=== PATIENT | female | born 1945 | race Caucasian/White ===

== ENCOUNTER → 2016-10-17 | Outpatient (CLI) | payer MEDICARE, BC ==
--- NOTE | 2016-10-17 19:51 | XCELERA REPORT ---
[address] [address] Transthoracic Echocardiogram Report Name: MELISSA WOLFF Age: 71 yrs Gender: Female : 1945 Patient Status: Outpatient Patient Location: Study Date: 10/17/2016 11:14 AM Height: 62 in Weight: 138 lb BSA: 1.6 m2 Reason For Study: CHF I50.32 Ordering Physician: PAMELA OLIVA Performed By: Jhonny Torres Interpretation Summary small post pericardial effusion Mild AV sclerosis with no , no AR. Mild MAC, no MS, mild MR with no LA enlargement Mild conc LVH with normal LVEF 60%, mild hypokin apical IVS hypokinesis, no LV diastolic dysfunction Mild TR with mild pulm hypertension, RVSP34 , MMode/2D Measurements \T\ Calculations RVDd: 2.6 cm LVIDd: 4.1 cm FS: 33.5 % Ao root diam: 3.1 cm IVSd: 1.1 cm LVIDs: 2.7 cm EDV(Teich): 75.1 ml LVPWd: 1.1 cm ESV(Teich): 28.0 ml Ao root area: 7.6 cm2 EF(Teich): 62.8 % LA dimension: 3.6 cm Doppler Measurements \T\ Calculations MV E max derek: MV P1/2t max derek: Ao V2 max: LV V1 max P.1 cm/sec 82.3 cm/sec 101.4 cm/sec 1.8 mmHg MV A max derek: MV P1/2t: 42.7 msec Ao max PG: LV V1 max: 58.5 cm/sec 4.1 mmHg 68.0 cm/sec MV E/A: 1.4 MVA(P1/2t): 5.1 cm2 MV dec slope: 563.9 cm/sec2 PA V2 max: PI end-d derek: TR max derek: RAP systole: 72.6 cm/sec 127.6 cm/sec 270.7 cm/sec 10.0 mmHg PA max PG: TR max P.1 mmHg 29.4 mmHg RVSP(TR): 39.4 mmHg Left Ventricle The left ventricle is normal in size. There is mild concentric left ventricular hypertrophy. The left ventricular ejection fraction is normal. LV EF is 60%. Doppler measurements suggest normal left ventricular diastolic function. There is distal septal wall mild hypokinesis. There are regional wall motion abnormalities as specified. There is no thrombus. Right Ventricle The right ventricle is normal in size, thickness and function. Atria The right atrium is normal. The left atrial size is normal. The interatrial septum is intact with no evidence for an atrial septal defect. Mitral Valve There is mild mitral annular calcification. There is no evidence of mitral valve prolapse. There is no mitral valve stenosis. There is a trace to mild amount of mitral regurgitation. Aortic Valve The aortic valve is sclerotic and shows some degree of functional abnormality. The aortic valve is trileaflet. There is no aortic valvular vegetation. There is no aortic valve stenosis. No aortic regurgitation is present. Tricuspid Valve The tricuspid valve is not well visualized secondary to technical limitations. There is a mild amount of tricuspid regurgitation. Right ventricular systolic pressure is estimated to be elevated at 30-40mmHg. 34mm Hg RAP 5. Pulmonic Valve The pulmonic valve is not well visualized. There is a trace or physiologic amount of pulmonic regurgitation. Great Vessels The aortic root is normal size. Effusions Small pericardial effusion. I WMSI = 1.07 % Normal = 93 Segments Size X - Cannot 1 - Normal 2 - 3 - Akinetic4 - 1-2 small Interpret Hypokinetic Dyskinetic 3-5 moderate 5 - 6-14 large Aneurysmal 15-16 diffuse : PAMELA OLIVA > Eloy Bullock
== END ==
LOC: SP 10:48
PROVIDERS: ATTEND Family Medicine
DX: I50.32 Chronic diastolic (congestive) heart failure (principal)
CPT/HCPCS: 93306

== ENCOUNTER 2017-11-12 19:05 | Emergency (ER) | payer MEDICARE, BC ==
[2017-11-12] MEDS ORDERED: HYDROCODONE/ACETAMINOPHEN 5-325 MG TABLET PO ONE (21:51)
[2017-11-12] MEDS ORDERED: LIDOCAINE 1% INJ-PF (10 MG/ML) 30 ML SDV INJ ONE (21:52)
[2017-11-12] MEDS ORDERED: TETANUS/DIPHTHERIA TOX-ADULT 0.5 ML SYR (>=7YO) IM ONE (21:52)
[2017-11-12] MEDS ORDERED: LIDOCAINE 1.5%/EPINEPHRINE INJ-PF 30 ML SDV INJ ONE (21:56)
[2017-11-12] MEDS ORDERED: LIDOCAINE 1%/EPINEPHRINE INJ 20 ML VIAL ONE ×2 (22:00→22:03)
--- NOTE | 2017-11-12 22:40 | ER Document Report ---
ED General - General Chief Complaint: Laceration Stated Complaint: LEFT HAND PAIN Time Seen by Provider: 11/12/17 21:50 Mode of Arrival: Ambulatory Information source: Patient TRAVEL OUTSIDE OF THE [place] IN LAST 30 DAYS: No - HPI Notes: Patient is a pleasant 72-year-old female presents to the emergency department with report that she was cleaning a glass bowl and ended up sustaining a laceration when the bowl broke, cutting her left hand. She reports moderate amount of bleeding. She is on Plavix. She denies any numbness, paresthesia, or loss of mobility. No other musculoskeletal complaint or injury. - Related Data Allergies/Adverse Reactions: No Known Drug Allergies Allergy (Unknown, Verified 11/12/17 19:08) Past Medical History - General Information source: Patient - Social History Smoking Status: Never Smoker Chew tobacco use (# tins/day): No Frequency of alcohol use: None Drug Abuse: None Lives with: Alone Family History: Reviewed & Not Pertinent Patient has suicidal ideation: No Patient has homicidal ideation: No - Past Medical History Cardiac Medical History: Reports: Hx Hypercholesterolemia Denies: Hx Coronary Artery Disease, Hx Heart Attack, Hx Hypertension Pulmonary Medical History: Denies: Hx Asthma, Hx Bronchitis, Hx COPD, Hx Pneumonia Neurological Medical History: Reports: Hx Cerebrovascular Accident - X 11 YEARS AGO BLIND LEFT EYE Renal/ Medical History: Denies: Hx Peritoneal Dialysis Musculoskeletal Medical History: Reports Hx Arthritis - OSTEOPOROSIS - Immunizations Hx Diphtheria, Pertussis, Tetanus Vaccination: No Hx Pneumococcal Vaccination: 03/05/15 Review of Systems - Review of Systems -: Yes All other systems reviewed and negative Physical Exam - Vital signs Vitals: Temp Pulse Resp BP Pulse Ox 97.5 F 91 18 151/86 H 92 11/12/17 19:47 11/12/17 19:47 11/12/17 19:47 11/12/17 19:47 11/12/17 19:47 - Notes Notes: Physical exam shows a interactive alert 72-year-old female no obvious distress HEENT conjunctiva clear Neck good mobility Examination left upper extremity shows a isolated 1.5 cm laceration along the thenar eminence palmar aspect. Distally the patient has good sensation and capillary refill and has no proximal erythema or adenopathy. She has good tendon function in flexion and extension. No obvious foreign body is noted on exam. Course - Re-evaluation Re-evalutation: 11/12/17 22:09 Patient was given a tetanus shot and was given a Huger for pain. Following discussion of risks alternatives and benefits, the patient had the wound area cleaned and Shur-Clens was used and then it was infiltrated with lidocaine with epinephrine 1.5 mL's due to patient having a arterial bleed to the wound. After this the wound was explored with no obvious foreign body and then was sutured shut using a 4.0 nonabsorbable suture material with good hemostasis and closure. There was no further bleeding. X-ray was performed after the closure due to the arterial bleed necessitating closure early. 11/12/17 22:58 X-ray showed no evidence for foreign body. Patient was neurovascularly intact with good tendon function and good distal capillary refill at time of discharge. The wound area was cleaned and antibiotic ointment was applied and it was gently wrapped. - Vital Signs Vital signs: Temp Pulse Resp BP Pulse Ox 97.5 F 91 18 151/86 H 92 11/12/17 19:47 11/12/17 19:47 11/12/17 19:47 11/12/17 19:47 11/12/17 19:47 Discharge - Discharge Clinical Impression: Laceration Condition: Stable Disposition: HOME, SELF-CARE Instructions: Antibiotic Ointment Protection ([facility]), Oral Narcotic Medication ( [facility]), Laceration Care ([facility]), Tetanus Immunization Given ([facility]) Additional Instructions: Return to the emergency department in case of fever, chills, severe pain or swelling. Apply antibiotic ointment to the wound twice a day. Sutures need to be removed in 9-10 days. Prescriptions: Hydrocodone/Acetaminophen [Huger 5-325 Tablet] 1 - 2 tab PO Q6HP PRN #15 tab PRN Reason: Referrals: PAMELA OLIVA MD [Primary Care Provider] - Follow up as needed
--- NOTE | 2017-11-12 22:50 | RADIOLOGY REPORT (SQ) ---
EXAM DESCRIPTION: XR HAND 1-2 VIEWS COMPLETED DATE/TME: 11/12/2017 21:50 CLINICAL HISTORY: 72 years Female, L hand vs glass COMPARISON: None. Findings: Known soft tissue injury; no radioopaque foreign body. Bones, joints, and soft tissues of the BILATERAL XR HAND 1-2 VIEWS appear otherwise intact. IMPRESSION: Soft tissue injury; else, no acute findings.
[2017-11-12 23:21] VITALS: BP 131/69
== END 2017-11-12 23:20 | disposition home or self-care (01) ==
LOC: ER 19:05
PROC: 0HQGXZZ Repair Left Hand Skin, External Approach (ICD-10-PCS; principal; 2017-11-12)
DX: S61.412A Laceration without foreign body of left hand, initial encounter (principal); M79.642 Pain in left hand; W25.XXXA Contact with sharp glass, initial encounter
CPT/HCPCS: 99283; 90471; 73120; 90714; 12001; J3490 ×2; A9270

== ENCOUNTER 2020-02-01 16:19 | Emergency (ER) | payer MEDICARE, BC ==
[2020-02-01 16:33] VITALS: BP 165/89
--- NOTE | 2020-02-01 16:47 | ER Document Report ---
ED Extremity Problem, Lower - General Chief Complaint: Leg Swelling Stated Complaint: LEFT LEG SWELLING Time Seen by Provider: 02/01/20 16:38 Primary Care Provider: PAMELA OLIVA MD [Primary Care Provider] - Follow up as needed Notes: CHIEF COMPLAINT: Left foot bruising left leg swelling HPI: 74-year-old female who is on Plavix presenting for swelling in the left medial mid zaragoza region that began around 4 days ago. 2 days ago developed bruising over the left foot and ankle. No pain to the foot denies a specific remembered trauma. Denies other complaints at this time ROS: See HPI - all other systems were reviewed and are otherwise negative Constitutional: no fever Eyes: no drainage, no blurred vision ENT: no runny nose, no sore throat Integumentary: Positive bruising Allergy: no hives Musculoskeletal: + extremity pain or swelling Neurological: no numbness/tingling, no weakness MEDICATIONS: I agree with the patient medications as charted by the RN. ALLERGIES: I agree with the allergies as charted by the RN. PAST MEDICAL HISTORY/PAST SURGICAL HISTORY: Reviewed and agree as charted by RN. SOCIAL HISTORY: Reviewed and agree as charted by RN. FAMILY HISTORY: No significant familial comorbid conditions directly related to patient complaint EXAM: Reviewed vital signs as charted by RN. CONSTITUTIONAL: Alert and oriented and responds appropriately to questions. Well-appearing; well-nourished HEAD: Normocephalic; atraumatic EYES: Conjunctivae clear, sclerae non-icteric ENT: normal nose; no rhinorrhea; moist mucous membranes NECK: Supple without meningismus CARD: symmetric distal pulses RESP: Normal chest excursion without splinting or tachypnea ABD/GI: non-distended. BACK: The back appears normal EXT: Normal ROM in all joints; no cyanosis, no effusions, no edema SKIN: Normal color for age and race; warm; dry; good turgor; there is bruising noted over the entire left foot and ankle. Dorsalis pedis and posterior tibial pulses are present in the left foot and ankle. Sensation is intact in the toes with capillary refill less than 3 seconds. No tenderness on palpation of the foot. There is a small hematoma noted to the left lower leg mid tibial region. No calf pain on palpation NEURO: Moves all extremities equally; Motor and sensory function intact PSYCH: The patient's mood and manner are appropriate. Grooming and personal hygiene are appropriate. MDM: 74-year-old female with a small hematoma in the mid tibial region of the left lower extremity with bruising and ecchymosis distal to this. She is on Plavix. She denies a specific trauma but has likely a small contusion hematoma left lower leg mid tibial region medially with layering of the blood under the skin post injury. This may have been nontraumatic. She has no other complaints. Will check baseline labs bleeding time if normal will discharge home with recommendation to ice to the lower leg hematoma elevate foot follow-up PCP TRAVEL OUTSIDE OF THE [place] IN LAST 30 DAYS: No - Related Data Allergies/Adverse Reactions: No Known Drug Allergies Allergy (Unknown, Verified 02/01/20 16:37) Past Medical History - Social History Smoking Status: Unknown if Ever Smoked Family History: Reviewed & Not Pertinent - Past Medical History Cardiac Medical History: Reports: Hx Hypercholesterolemia Denies: Hx Coronary Artery Disease, Hx Heart Attack, Hx Hypertension Pulmonary Medical History: Denies: Hx Asthma, Hx Bronchitis, Hx COPD, Hx Pneumonia Neurological Medical History: Reports: Hx Cerebrovascular Accident - X 11 YEARS AGO BLIND LEFT EYE Renal/ Medical History: Denies: Hx Peritoneal Dialysis Musculoskeletal Medical History: Reports Hx Arthritis - OSTEOPOROSIS - Immunizations Hx Diphtheria, Pertussis, Tetanus Vaccination: No Hx Pneumococcal Vaccination: 03/05/15 Physical Exam - Vital signs Vitals: Temp Pulse Resp BP Pulse Ox 98.2 F 99 16 165/89 H 94 02/01/20 16:32 02/01/20 16:32 02/01/20 16:32 02/01/20 16:32 02/01/20 16:32 Course - Re-evaluation Re-evalutation: 02/01/20 17:33 Labs are essentially nonactionable. Will discharge home to follow-up with PCP - Vital Signs Vital signs: Temp Pulse Resp BP Pulse Ox 98.2 F 99 16 165/89 H 94 02/01/20 16:32 02/01/20 16:32 02/01/20 16:32 02/01/20 16:32 02/01/20 16:32 - Laboratory Result Diagrams: 02/01/20 16:06 02/01/20 16:06 Laboratory results interpreted by me: 02/01/20 02/01/20 16:06 16:06 RDW 14.7 H Carbon Dioxide 31 H BUN 29 H Creatinine 1.30 H Est GFR ( Amer) 49 L Est GFR (MDRD) Non-Af 40 L Discharge - Discharge Clinical Impression: Hematoma of left lower leg Condition: Stable Disposition: HOME, SELF-CARE Instructions: Hematoma ([facility]) Additional Instructions: Cool compresses to the anterior lower leg to help with swelling and with bruising. Elevate the foot and leg is much as possible. Bruising should resolve in 2 to 3 weeks. Follow-up with your primary care provider for reevaluation of symptoms. Call for appointment. Your lab work did not show any acute emergent abnormalities Referrals: PAMELA OLIVA MD [Primary Care Provider] - Follow up as needed
[2020-02-01 17:06] LABS: ABSOLUTE EOSINOPHILS # (AUTO) 0.2 10^3/uL (0.0-0.6); ABSOLUTE LYMPHOCYTES (AUTO) 1.6 10^3/uL (0.5-4.7); ABSOLUTE MONOCYTES (AUTO) 0.5 10^3/uL (0.1-1.4); ABSOLUTE NEUT (AUTO) 4.3 10^3/uL (1.7-8.2); BASOPHILS % (AUTO) 0.6 % (0-2); EOSINOPHILS % (AUTO) 3.2 % (0-6); HEMATOCRIT 36.5 % (36.0-47.0); HEMOGLOBIN 12.4 g/dL (12.0-15.5); LYMPHOCYTES % (AUTO) 24.3 % (13-45); MEAN CORPUSCULAR HEMOGLOBIN 30.8 pg (27.0-33.4); MEAN CORPUSCULAR HGB CONC 33.9 g/dL (32.0-36.0); MEAN CORPUSCULAR VOLUME 91 fl (80-97); MONOCYTES % (AUTO) 7.8 % (3-13); PLATELET COUNT 300 10^3/uL (150-450); RED BLOOD COUNT 4.02 10^6/uL (3.72-5.28); RED CELL DISTRIBUTION WIDTH 14.7 % (11.5-14.0); SEGMENTED NEUTROPHILS % (AUTO) 64.1 % (42-78); TOTAL CELLS COUNTED % (AUTO) 100 %; WHITE BLOOD COUNT 6.8 10^3/uL (4.0-10.5)
[2020-02-01 17:11] LABS: INTERNATIONAL RATION (INR) 0.88; PROTHROMBIN TIME 12.2 SEC (11.4-15.4)
[2020-02-01 17:22] LABS: ALBUMIN 4.3 g/dL (3.5-5.0); ALKALINE PHOSPHATASE 72 U/L (38-126); ANION GAP 5 (5-19); ASPARTATE AMINO TRANSFERASE 33 U/L (14-36); BILIRUBIN,DIRECT 0.1 mg/dL (0.0-0.4); BILIRUBIN,TOTAL 0.4 mg/dL (0.2-1.3); BLOOD UREA NITROGEN 29 mg/dL (7-20); CALCIUM 9.7 mg/dL (8.4-10.2); CARBON DIOXIDE 31 mmol/L (22-30); CHLORIDE 104 mmol/L (98-107); GLUCOSE 101 mg/dL (75-110); POTASSIUM 4.4 mmol/L (3.6-5.0); TOTAL PROTEIN 7.4 g/dL (6.3-8.2)
== END 2020-02-01 17:36 | disposition home or self-care (01) ==
LOC: ER 16:19
DX: S80.12XA Contusion of left lower leg, initial encounter (principal); X58.XXXA Exposure to other specified factors, initial encounter; R22.42 Localized swelling, mass and lump, left lower limb; E78.00 Pure hypercholesterolemia, unspecified; Z79.01 Long term (current) use of anticoagulants; H53.8 Other visual disturbances; I69.898 Other sequelae of other cerebrovascular disease
CPT/HCPCS: 36415; 80053; 85025; 85610; 99283